=== PATIENT | female | born 1960 | race Caucasian/White ===

== ENCOUNTER 2016-08-10 08:17 | Emergency (ER) | payer BC ==
[2016-08-10 08:28] VITALS: BP 155/81; PULSE 75; RESP 20; TEMP 98.9; O2SAT 97
[2016-08-10] MEDS ORDERED: SODIUM CHLORIDE 0.9% FLUSH 10 ML FLUSH IVF PRN (08:30)
[2016-08-10] MEDS ORDERED: ASPIRIN 81 MG CHEW TAB PO ONE (08:30)
[2016-08-10] MEDS ORDERED: KETOROLAC TROMETHAMINE 30 MG/ML (IVP) VIAL IV PUSH ONE (08:30)
--- NOTE | 2016-08-10 08:36 | PD ---
HPI Chief Complaint: Chest Pain Time Seen by Provider: 08:26 Travel History International Travel<30 days: No Contact w/Intl Traveler<30days: No Traveled to known affect area: No History of Present Illness HPI 56-year-old female with history of HTN, HLD here with complaint of chest pain. For the last 4 days patient has had pain in the right side of the chest. Describes this as right sided inframammary. It radiates around the back into the subscapular and medial scapular region. She states that it is "spasm" type pain, worse with certain movements and positioning. She describes using her arm to get out of the car, and externally rotating the shoulder is reproducing symptoms. However, she does note she has some associated shortness of breath. This is mild. She has had a one-month dry, nonproductive cough. He attributes this to "catching something in the hospital", while she was visiting her father who is ill and in July. No recent travel, fevers or chills. Her symptoms have been intermittent, and are mild 1/10 in severity at this time. She hasn't found anything that seems to make the pain better when present. She notes paternal uncles with heart disease, passing from [facility] in the late 40s/mid- 50s. Her father did not have heart disease. She herself has not been known to have any heart disease but has never had any provocative testing. [facility] Past Medical History High Cholesterol: Yes Hypertension: Yes ?: Not Social History Tobacco Use: Yes (1/2 PPD) Allergies-Medications (Allergen,Severity, Reaction): Coded Allergies: No Known Allergies (Unverified , 08/10/16) Reported Meds & Prescriptions Reported Meds & Active Scripts Active Reported Hydrochlorothiazide 12.5 Mg Cap 12.5 Mg PO DAILY Lovastatin 40 Mg Tab 40 Mg PO DAILY Review of Systems Except as stated in HPI: all other systems reviewed are Neg Physical Exam Narrative GENERAL: Well-appearing female in no acute distress SKIN: Focused skin assessment warm/dry. HEAD: Atraumatic. Normocephalic. EYES: Pupils equal and round. No scleral icterus. No injection or drainage. ENT: No nasal bleeding or discharge. Mucous membranes pink and moist. NECK: Supple without midline tenderness to palpation. No trapezius tenderness. CARDIOVASCULAR: Regular rate and rhythm. No murmur appreciated. No reproducible tenderness to palpation of the chest wall RESPIRATORY: No accessory muscle use. Clear to auscultation. Breath sounds equal bilaterally. GASTROINTESTINAL: Abdomen soft, non-tender, nondistended. Obese MUSCULOSKELETAL: Reproducible pain with palpation over the rhomboids and inferior scapular region, pain is also reproduced with external rotation of the right shoulder. No obvious deformities.No edema. NEUROLOGICAL: Awake and alert. Normal speech. PSYCHIATRIC: Appropriate mood and affect; insight and judgment normal. Data Data Last Documented VS Vital Signs Date Time Temp Pulse Resp B/P Pulse Ox O2 Delivery O2 Flow Rate FiO2 08/10/16 10:07 62 18 126/72 96 Room Air 08/10/16 08:28 98.9 Orders Electrocardiogram (08/10/16 08:27) Basic Metabolic Panel (Bmp) (08/10/16 08:27) Ckmb (Isoenzyme) Profile (08/10/16 08:27) Complete Blood Count With Diff (08/10/16 08:27) D-Dimer (08/10/16 08:27) Magnesium (Mg) (08/10/16 08:27) Prothrombin Time / Inr (Pt) (08/10/16 08:27) Act Partial Throm Time (Ptt) (08/10/16 08:27) Troponin I (08/10/16 08:27) Chest, Single Ap (08/10/16 08:27) Ecg Monitoring (08/10/16 08:27) Bilateral Bp Monitoring (08/10/16 08:27) Iv Access Insert/Monitor (08/10/16 08:27) Oximetry (08/10/16 08:27) Aspirin Chew (Aspirin Chew) (08/10/16 08:30) Sodium Chloride 0.9% Flush (Ns Flush) (08/10/16 08:30) Ketorolac Inj (Toradol Inj) (08/10/16 08:30) CKMB (08/10/16 08:30) CKMB% (08/10/16 08:30) Ct Pulmonary Angiogram (08/10/16 09:27) Iohexol 350 Inj (Omnipaque 350 Inj) (08/10/16 09:55) Labs Laboratory Tests Test 08/10/16 08:30 White Blood Count 7.1 TH/MM3 Red Blood Count 4.16 MIL/MM3 Hemoglobin 13.1 GM/DL Hematocrit 39.6 % Mean Corpuscular Volume 95.2 FL Mean Corpuscular Hemoglobin 31.5 PG Mean Corpuscular Hemoglobin 33.1 % Concent Red Cell Distribution Width 14.3 % Platelet Count 239 TH/MM3 Mean Platelet Volume 8.7 FL Neutrophils (%) (Auto) 66.0 % Lymphocytes (%) (Auto) 24.2 % Monocytes (%) (Auto) 6.7 % Eosinophils (%) (Auto) 2.8 % Basophils (%) (Auto) 0.3 % Neutrophils # (Auto) 4.7 TH/MM3 Lymphocytes # (Auto) 1.7 TH/MM3 Monocytes # (Auto) 0.5 TH/MM3 Eosinophils # (Auto) 0.2 TH/MM3 Basophils # (Auto) 0.0 TH/MM3 CBC Comment DIFF FINAL Differential Comment Prothrombin Time 10.3 SEC Prothromb Time International 0.9 RATIO Ratio Activated Partial 26.6 SEC Thromboplast Time D-Dimer Quantitative (PE/DVT) 0.54 MG/L FEU Sodium Level 141 MEQ/L Potassium Level 3.6 MEQ/L Chloride Level 104 MEQ/L Carbon Dioxide Level 28.1 MEQ/L Anion Gap 9 MEQ/L Blood Urea Nitrogen 15 MG/DL Creatinine 0.75 MG/DL Estimat Glomerular Filtration 80 ML/MIN Rate Random Glucose 104 MG/DL Calcium Level 8.9 MG/DL Magnesium Level 2.3 MG/DL Total Creatine Kinase 108 U/L Creatine Kinase MB 0.6 NG/ML Troponin I LESS THAN 0.02 NG/ML MDM Medical Decision Making Medical Screen Exam Complete: Yes Emergency Medical Condition: Yes Medical Record Reviewed: Yes Differential Diagnosis 56-year-old female with history of HTN, HLD, tobacco abuse here with 4 days of intermittent right sided inframammary chest pain that radiates to the right scapular region. Pain is somewhat worse with movement and reproducible on examination, suspect musculoskeletal etiology. However with her associated medical comorbidities and shortness of breath concern for ACS, PE and less likely pneumonia, dissection, GERD. Narrative Course Patient placed on monitor, IV established and blood obtained. A twelve-lead EKG shows sinus rhythm without notable ST or T-wave abnormalities and normal intervals. Patient was given aspirin, 30 mg Toradol. Portable chest x-ray obtained and by my read shows no acute abnormalities. CBC, BMP, magnesium, CK- MB, troponin, d-dimer, coags notable for minimally elevated d-dimer. CT pulmonary angiogram was obtained showing minimal right lower lobe atelectasis. I suspect she may have had a pneumonia over the course the last month and the atelectasis is residual from that. Regardless there is no active pneumonia at this time seen radiographically. Suspect pleurisy, chest wall strain and musculoskeletal etiology given all the above symptoms. Patient feels improved at this time. Discussed obtain serial cardiac enzymes but I think that this is low yield given her clinical picture. Patient and her significant other are agreeable to same. We'll discharge to home with analgesics when necessary an outpatient primary care follow-up for this coming Saturday if symptoms persist. Given warning signs to return to the ER. Diagnosis Primary Impression: Non-cardiac chest pain Additional Impression: Pleurisy Referrals: Ender Henao MD 1 week Saturday if still symptomatic. Additional Instructions: Ultram as needed for pain. Follow-up with primary care provider on Saturday as scheduled if still symptomatic. Return to the ER for the warning signs discussed. Med/Other Pt SpecificInfo: Prescription(s) given Scripts Tramadol (Ultram)50 Mg Tab50 Mg PO Q6H PRN (PAIN) #15 TAB Ref 0 Prov:Effie Piña MD 08/10/16 Disposition: 01 DISCHARGE HOME Condition: Stable Effie Piña MD Aug 10, 2016 08:36
[2016-08-10 08:38] VITALS: O2SAT 97
[2016-08-10] MEDS ORDERED: LOVA40TA PO (08:40)
[2016-08-10] MEDS ORDERED: HYDR12.57 PO (08:40)
[2016-08-10 08:50] VITALS: BP 142/81; PULSE 75; RESP 20; O2SAT 97
[2016-08-10 08:50] LABS: AUTOMATED NEUTROPHIL # 4.7 TH/MM3 (1.8-7.7); BASOPHIL % 0.3 % (0.0-2.0); EOSINOPHIL # 0.2 TH/MM3 (0-0.4); EOSINOPHIL % 2.8 % (0.0-4.0); HEMATOCRIT 39.6 % (35.0-46.0); HEMO FLAGS DIFF FINAL; LYMPH % 24.2 % (9.0-44.0); LYMPHOCYTE # 1.7 TH/MM3 (1.0-4.8); MEAN CELL VOLUME 95.2 FL (80.0-100.0); MEAN CORPUSCULAR HEMOGLOBIN 31.5 PG (27.0-34.0); MEAN CORPUSCULAR HGB CONC 33.1 % (32.0-36.0); MONO % 6.7 % (0.0-8.0); PLATELET COUNT 239 TH/MM3 (150-450); RED BLOOD COUNT 4.16 MIL/MM3 (4.00-5.30); RED CELL DISTRIBUTION WIDTH 14.3 % (11.6-17.2); WHITE BLOOD COUNT 7.1 TH/MM3 (4.0-11.0)
[2016-08-10 08:52] VITALS: BP_SYST 139; BP_SYST 142; BP_DIAS 70; BP_DIAS 81
[2016-08-10 08:58] LABS: CHLORIDE 104 MEQ/L (98-107); POTASSIUM 3.6 MEQ/L (3.5-5.1); SODIUM (NA) 141 MEQ/L (136-145)
--- NOTE | 2016-08-10 09:00 | RADHPO ---
EXAM DATE/TIME: 08/10/2016 08:42 [facility] COMPARISON: No previous studies available for comparison. INDICATIONS : Right shoulder/chest pain behind breast. MEDICAL HISTORY : Hypercholesterolemia. Hypertension SURGICAL HISTORY : None. ENCOUNTER: Initial ACUITY: 4 - 6 days PAIN SCORE: 6/10 LOCATION: Right chest FINDINGS: A single view of the chest demonstrates the lungs to be symmetrically aerated without evidence of mas s, infiltrate or effusion. The cardiomediastinal contours are unremarkable. Degenerative changes ar e present both A/C joints. CONCLUSION: No acute disease. Dragan Rebolledo MD FACR on August 10, 2016 at 8:57 Board Certified Radiologist. This report was verified electronically.
[2016-08-10 09:01] LABS: ANION GAP 9 MEQ/L (5-15); BICARBONATE 28.1 MEQ/L (21.0-32.0); BLOOD UREA NITROGEN 15 MG/DL (7-18); MAGNESIUM 2.3 MG/DL (1.5-2.5)
[2016-08-10 09:04] LABS: GLOMERULAR FILTRATION RATE 80 ML/MIN (>89)
[2016-08-10 09:07] LABS: CREATINE KINASE 108 U/L (26-192)
[2016-08-10 09:17] LABS: APTT (PATIENT) 26.6 SEC (24.3-30.1); INTERNATIONAL NORMALIZED RATIO 0.9 RATIO; PROTHROMBIN TIME - PATIENT 10.3 SEC (9.8-11.6)
[2016-08-10 09:19] LABS: CKMB 0.6 NG/ML (0.5-3.6)
[2016-08-10 09:37] VITALS: BP 113/78; PULSE 59; RESP 18; O2SAT 97
[2016-08-10] MEDS ORDERED: IOHEXOL 350 MG/ML 10 ML VIAL (for RAD DIAG) IV ONE (09:55)
[2016-08-10 10:07] VITALS: BP 126/72; PULSE 62; RESP 18; O2SAT 96
--- NOTE | 2016-08-10 10:13 | RADHPO ---
EXAM DATE/TIME: 08/10/2016 09:41 [facility] COMPARISON: No previous studies available for comparison. INDICATIONS : Right chest and arm pain x 4 days. IV CONTRAST: 75 cc Omnipaque 350 (iohexol) IV RADIATION DOSE: 19.42 CTDIvol (mGy) MEDICAL HISTORY : Hypertension. SURGICAL HISTORY : None. ENCOUNTER: Initial ACUITY: 4 - 6 days PAIN SCALE: 2/10 LOCATION: Right chest TECHNIQUE: Volumetric scanning of the chest was performed using a pulmonary embolism protocol MIP images were re constructed. Using automated exposure control and adjustment of the mA and/or kV according to patien t size, radiation dose was kept as low as reasonably achievable to obtain optimal diagnostic quality images. FINDINGS: PULMONARY ARTERIES: No filling defects are seen in the pulmonary arteries through the segmental level. LUNGS: Minimal linear atelectasis in the right lung base. Lungs are otherwise clear. No focal parenchymal ab normality. PLEURAE: There is no pleural thickening or pleural effusion. MEDIASTINUM: There is good visualization of the great vessels of the middle mediastinum. No evidence of mediastin al or hilar adenopathy/mass. MUSCULOSKELETAL: Within normal limits for patient age. MISCELLANEOUS: The visualized upper abdominal organs demonstrate no acute abnormality. CONCLUSION: 1. No CT evidence for pulmonary embolism through the subsegmental level. 2. Minimal right lower lobe atelectasis. 3. Otherwise, normal CT examination of the chest. Maxime López MD on August 10, 2016 at 9:58 Board Certified Radiologist. This report was verified electronically.
[2016-08-10] MEDS ORDERED: ULTR50TA5 PO (10:21)
--- NOTE | 2016-08-12 10:14 | EKG ---
Date Performed: 08/10/2016 Time Performed: 08:16:58 PTAGE: 56 years EKG: Sinus rhythm . Normal ECG NO PREVIOUS TRACING DOCTOR: Praveen Griffin Interpretating Date/Time 08/12/2016 09:56:00
== END 2016-08-10 10:38 | disposition home or self-care (01) ==
LOC: PHED 08:17
DX: R07.89 Other chest pain (principal); R09.1 Pleurisy; I10 Essential (primary) hypertension; R06.02 Shortness of breath; E78.00 Pure hypercholesterolemia, unspecified; F17.200 Nicotine dependence, unspecified, uncomplicated
CPT/HCPCS: 71010; 71275; 80048; 82550; 82552; 83735; 84484; 85025; 85379; 85610; 85730; 93005; 96374; 99285; J1885; Q9967